=== PATIENT | male | born 1945 | race African-American/Black ===

== ENCOUNTER 2023-10-07 15:49 | Inpatient (IN) | payer MEDICARE, OTHER ==
[~2023-10-07] VITALS: Ht 190.5 cm; Wt 105.7 kg
[2023-10-07 17:12] LABS: HEMATOCRIT. 30.4 % (42.0-52.0); HEMOGLOBIN. 9.7 g/dL (14.0-18.0); MEAN CORPUSCULAR HGB CONC 31.8 g/dL (31.0-37.0); MEAN CORPUSCULAR VOLUME 97.4 fL (80.0-94.0); MEAN PLATELET VOLUME 11.7 fl (7.4-10.4); PLATELET 200 x1000/uL (130-400); RED BLOOD CELL COUNT 3.12 mill/uL (4.7-6.1); RED CELL DISTRIBUTION WIDTH 13.4 % (11.6-14.6); WHITE BLOOD COUNT 12.8 x1000/uL (4.5-11.0)
[2023-10-07 17:14] LABS: POTASSIUM 4.3 mEq/L (3.5-5.1)
[2023-10-07 17:15] LABS: CALCIUM 9.7 mg/dL (8.7-10.4)
[2023-10-07 17:16] LABS: DIFFERENTIAL COMMENT 1
[2023-10-07 17:18] LABS: INR 1.1; PROTHROMBIN TIME 12.5 sec (9.6-11.0)
[2023-10-07 17:20] LABS: CREATININE 2.5 mg/dL (0.6-1.3)
[2023-10-07 17:37] LABS: PLATELET ESTIMATE NORMAL
[2023-10-07 18:47] LABS: CLARITY URINE TURBID (CLEAR); COLOR URINE DARK YELLOW (YELLOW); GLUCOSE URINE NEGATIVE (NEGATIVE); KETONES URINE NEGATIVE (NEGATIVE); LEUKOCYTE ESTERASE URINE 3+ (NEGATIVE); NITRITE URINE NEGATIVE (NEGATIVE); OCCULT BLOOD URINE 2+ (NEGATIVE); PROTEIN URINE 3+ (NEGATIVE); SPECIFIC GRAVITY URINE 1.018 (1.005-1.030)
[2023-10-07 19:03] LABS: WBC URINE TNTC /hpf (0-2)
[2023-10-07 19:04] LABS: BACTERIA URINE 4+; SQUAMOUS EPITHELIAL CELL URINE NONE SEEN /lpf (RARE/1+); YEAST URINE NONE SEEN
[2023-10-07 19:05] LABS: RBC URINE 25-50 /hpf (0-2)
[2023-10-07] MEDS: CEFTRIAXONE 1GM/50ML 50 ML IV ONE (19:38)
[2023-10-07 23:58] VITALS: BP 130/70; PULSE 75; RESP 18; TEMP 36.418
[2023-10-08] VITALS: BP 130/60; PULSE 75; RESP 18; TEMP 36.3918; O2SAT 95
[2023-10-08] MEDS ORDERED: CEFEPIME 1GM IN DEXT 5% 50ML IV SCH
[2023-10-08] MEDS ORDERED: ONDANSETRON HCL 4MG/2ML INJ IV PRN
[2023-10-08] MEDS ORDERED: IPRATROPIUM/ALBUTEROL 0.5-3(2.5)MG/3ML NEB NEB PRN
[2023-10-08] MEDS: SODIUM CHLORIDE 0.9% 1,000 ML IV SCH (01:18)
[2023-10-08] MEDS: CEFEPIME 1GM/50ML 50 ML IV SCH (01:19)
[2023-10-08 04:00] VITALS: BP 104/41; PULSE 91; RESP 17; TEMP 36.33624; O2SAT 99
[2023-10-08] MEDS: ENOXAPARIN 40MG/0.4ML SYR SUBCUT SCH (10:34)
[2023-10-08 11:51] LABS: DIFFERENTIAL COMMENT 1; HEMATOCRIT. 29.8 % (42.0-52.0); HEMOGLOBIN. 9.8 g/dL (14.0-18.0); MEAN CORPUSCULAR HEMOGLOBIN 31.4 pg (28.0-32.0); MEAN CORPUSCULAR HGB CONC 32.9 g/dL (31.0-37.0); MEAN CORPUSCULAR VOLUME 95.4 fL (80.0-94.0); MEAN PLATELET VOLUME 12.1 fl (7.4-10.4); PLATELET 206 x1000/uL (130-400); RED BLOOD CELL COUNT 3.13 mill/uL (4.7-6.1); RED CELL DISTRIBUTION WIDTH 13.1 % (11.6-14.6); WHITE BLOOD COUNT 8.4 x1000/uL (4.5-11.0)
[2023-10-08 11:57] LABS: CHLORIDE 112 mEq/L (98-107); POTASSIUM 4.1 mEq/L (3.5-5.1); SODIUM 138 mEq/L (136-145)
[2023-10-08 11:58] LABS: CALCIUM 9.4 mg/dL (8.7-10.4); CARBON DIOXIDE 18 mEq/L (21-32)
[2023-10-08 12:03] LABS: CREATININE 1.8 mg/dL (0.6-1.3); GLUCOSE 221 mg/dL (70-105); TRIGLYCERIDE 95 mg/dL (0-150); UREA NITROGEN BLOOD 47 mg/dL (9-23)
[2023-10-08 12:04] LABS: CREATINE KINASE MB FRACTION 1.7 ng/mL (0.5-3.6); LDL CHOLESTEROL 48 mg/dL (5-100); TROPONIN I HIGH SENSITIVITY 5 ng/L (3.0-53)
[2023-10-08 12:05] LABS: CHOLESTEROL 95 mg/dL (<200); CREATINE KINASE 131 IU/L (46-171); HDL CHOLESTEROL 27 mg/dL (>55)
[2023-10-08 12:51] LABS: *AMPHETAMINES SCREEN URINE NEGATIVE (NEGATIVE); *BARBITURATES SCREEN URINE NEGATIVE (NEGATIVE); *BENZODIAZEPINES SCREEN URINE NEGATIVE (NEGATIVE); *COCAINE SCREEN URINE NEGATIVE (NEGATIVE); METHADONE URINE SCREEN NEGATIVE (NEGATIVE); OPIATES URINE SCREEN NEGATIVE (NEGATIVE)
[2023-10-08 12:52] LABS: CANNABINOID URINE SCREEN NEGATIVE (NEGATIVE); PHENCYCLIDINE URINE SCREEN NEGATIVE (NEGATIVE)
[2023-10-08] MEDS ORDERED: AMLO10TA80 PO (15:31)
[2023-10-08] MEDS ORDERED: DUTA0.5C37 PO (15:31)
[2023-10-08] MEDS ORDERED: METF-414 PO (15:31)
[2023-10-08] MEDS ORDERED: DEXTROSE 50% WATER 50ML SYRINGE IV PRN (15:45)
[2023-10-08] MEDS: TAMSULOSIN HCL 0.4MG SR CAPSULE PO SCH (15:53)
[2023-10-08] MEDS: AMLODIPINE 10MG TABLET PO SCH (15:53)
[2023-10-08 16:23] LABS: PLATELET ESTIMATE NORMAL
[2023-10-08] MEDS: BLOOD SUGAR DIAGNOSTIC STRIP TEST SCH (17:30)
[2023-10-08] MEDS: INSULIN LISPRO 100 UNITS/ML SUBCUT SCH (17:51)
[2023-10-08] MEDS: HALOPERIDOL LACTATE 5MG/ML VIAL IM NR (22:57)
[2023-10-08] MEDS: ASPIRIN 81MG TABLET PO SCH (22:57)
[2023-10-09] VITALS: BP 160/36; PULSE 68; RESP 18; TEMP 36.33624; O2SAT 100
[2023-10-09 07:21] LABS: CALCIUM 9.2 mg/dL (8.7-10.4)
[2023-10-09 07:27] LABS: CREATININE 1.8 mg/dL (0.6-1.3)
[2023-10-09 07:32] LABS: HEMATOCRIT. 29.2 % (42.0-52.0); HEMOGLOBIN. 9.4 g/dL (14.0-18.0); MEAN CORPUSCULAR HGB CONC 32.3 g/dL (31.0-37.0); MEAN PLATELET VOLUME 11.5 fl (7.4-10.4); PLATELET 198 x1000/uL (130-400); RED BLOOD CELL COUNT 3.04 mill/uL (4.7-6.1); WHITE BLOOD COUNT 5.7 x1000/uL (4.5-11.0)
[2023-10-09 07:37] LABS: DIFFERENTIAL COMMENT 1
[2023-10-09 08:00] VITALS: BP 138/81; PULSE 93; RESP 17; TEMP 36.3918; O2SAT 97
[2023-10-09] MEDS: DUTASTERIDE 0.5MG CAPSULE PO SCH (09:31)
[2023-10-09 12:00] VITALS: BP 123/84; PULSE 82; RESP 19; TEMP 36.44736; O2SAT 98
[2023-10-09 16:00] VITALS: BP 122/78; PULSE 87; RESP 18; TEMP 36.61404; O2SAT 19
[2023-10-09] MEDS ORDERED: LORAZEPAM 2MG/ML INJ IV PRN (18:15)
[2023-10-09 20:00] VITALS: BP 147/65; PULSE 98; RESP 19; TEMP 36.72516; O2SAT 98
[2023-10-09 20:10] LABS: PLATELET ESTIMATE NORMAL
[2023-10-09] MEDS: ATORVASTATIN CALCIUM 10MG TABLET PO SCH (20:20)
[2023-10-10] VITALS: BP 138/72; PULSE 87; RESP 19; TEMP 37.11408; O2SAT 97
[2023-10-10 04:00] VITALS: BP 144/68; PULSE 94; RESP 19; TEMP 37.05852; O2SAT 98
[2023-10-10 07:21] LABS: CARBON DIOXIDE 20 mEq/L (21-32); CHLORIDE 112 mEq/L (98-107); POTASSIUM 4.2 mEq/L (3.5-5.1); SODIUM 141 mEq/L (136-145)
[2023-10-10 07:22] LABS: CALCIUM 9.5 mg/dL (8.7-10.4)
[2023-10-10 07:27] LABS: CREATININE 1.3 mg/dL (0.6-1.3); GLUCOSE 192 mg/dL (70-105); UREA NITROGEN BLOOD 33 mg/dL (9-23)
[2023-10-10 07:47] LABS: BASOPHILS % 0.5 % (0.0-2.0); EOSINOPHILS % 0.3 % (0.0-5.0); HEMATOCRIT. 29.8 % (42.0-52.0); HEMOGLOBIN. 9.6 g/dL (14.0-18.0); LYMPHOCYTES % 16.3 % (20.0-50.0); MEAN CORPUSCULAR HEMOGLOBIN 30.7 pg (28.0-32.0); MEAN CORPUSCULAR HGB CONC 32.1 g/dL (31.0-37.0); MEAN CORPUSCULAR VOLUME 95.6 fL (80.0-94.0); MEAN PLATELET VOLUME 11.1 fl (7.4-10.4); MONOCYTES % 12.7 % (2.0-8.0); NEUTROPHILS % 70.2 % (40.0-76.0); PLATELET 223 x1000/uL (130-400); RED BLOOD CELL COUNT 3.12 mill/uL (4.7-6.1); RED CELL DISTRIBUTION WIDTH 13.1 % (11.6-14.6); WHITE BLOOD COUNT 7.7 x1000/uL (4.5-11.0)
[2023-10-10 08:00] VITALS: BP 153/72; PULSE 99; RESP 20; TEMP 36.50292; O2SAT 96
[2023-10-10 12:00] VITALS: BP 134/71; PULSE 97; RESP 20; TEMP 36.44736; O2SAT 98
[2023-10-10 16:00] VITALS: BP 141/75; PULSE 96; RESP 18; TEMP 36.50292; O2SAT 98
[2023-10-10 20:00] VITALS: BP 145/67; PULSE 68; RESP 19; TEMP 36.6696; O2SAT 98
[2023-10-11] VITALS: BP 149/84; PULSE 89; RESP 17; TEMP 36.44736; O2SAT 100
[2023-10-11 04:00] VITALS: BP 159/73; PULSE 85; RESP 20; TEMP 36.89184; O2SAT 98
[2023-10-11 08:00] VITALS: BP 153/67; PULSE 91; RESP 19; TEMP 36.44736; O2SAT 98
[2023-10-11 12:00] VITALS: BP 145/70; PULSE 90; RESP 19; TEMP 36.33624; O2SAT 99
[2023-10-11 16:00] VITALS: BP 140/66; PULSE 85; RESP 19; TEMP 36.44736; O2SAT 98
[2023-10-11 20:00] VITALS: BP 128/70; PULSE 63; RESP 17; TEMP 37.39188; O2SAT 99
[2023-10-12] VITALS: BP 141/73; PULSE 61; RESP 19; TEMP 37.05852; O2SAT 97
[2023-10-12 04:00] VITALS: BP 152/79; PULSE 90; RESP 17; TEMP 36.3918; O2SAT 96
[2023-10-12 08:00] VITALS: BP 118/69; PULSE 90; RESP 21; TEMP 37.16964; O2SAT 98
[2023-10-12 12:00] VITALS: BP 108/61; PULSE 97; RESP 20; TEMP 36.89184; O2SAT 96
[2023-10-12 20:00] VITALS: BP 115/56; PULSE 107; RESP 18; TEMP 36.89184; O2SAT 97
[2023-10-13] VITALS: BP 138/69; PULSE 101; RESP 18; TEMP 37.11408; O2SAT 99
[2023-10-13 04:00] VITALS: BP 129/71; PULSE 97; RESP 20; TEMP 36.9474; O2SAT 98
[2023-10-13 08:00] VITALS: BP 140/65; PULSE 102; RESP 22; TEMP 37.05852; O2SAT 98
[2023-10-13] MEDS: CEPHALEXIN 250MG CAPSULE PO SCH (11:00)
[2023-10-13 12:00] VITALS: BP 137/66; PULSE 92; RESP 19; TEMP 37.00296; O2SAT 97
[2023-10-13 16:00] VITALS: BP 111/90; PULSE 91; RESP 20; TEMP 35.94732; O2SAT 95
[2023-10-13 20:00] VITALS: BP 112/65; PULSE 91; RESP 20; TEMP 36.61404; O2SAT 99
[2023-10-14] VITALS: BP 121/91; PULSE 89; RESP 20; TEMP 36.50292; O2SAT 100
[2023-10-14 04:00] VITALS: BP 123/63; PULSE 88; RESP 20; TEMP 36.22512; O2SAT 100
[2023-10-14 08:00] VITALS: BP 96/66; PULSE 103; RESP 19; TEMP 37.16964; O2SAT 97
[2023-10-14 12:00] VITALS: BP 107/67; PULSE 92; RESP 20; TEMP 36.72516; O2SAT 100
[2023-10-14 16:00] VITALS: BP 123/65; PULSE 102; RESP 19; TEMP 37.05852; O2SAT 97
[2023-10-14 20:00] VITALS: BP 125/67; PULSE 92; RESP 20; TEMP 36.61404; O2SAT 98
[2023-10-15] VITALS: BP 90/40; PULSE 91; RESP 20; TEMP 36.61404; O2SAT 100
[2023-10-15 04:00] VITALS: BP 146/84; PULSE 88; RESP 20; TEMP 36.72516; O2SAT 95
[2023-10-15 08:00] VITALS: BP 130/76; PULSE 94; RESP 18; TEMP 36.114; O2SAT 98
[2023-10-15 12:00] VITALS: BP 127/75; PULSE 91; RESP 17; TEMP 36.50292; O2SAT 96
[2023-10-15 16:00] VITALS: BP 136/75; PULSE 90; RESP 18; TEMP 36.3918; O2SAT 97
[2023-10-15 20:00] VITALS: BP 135/73; PULSE 102; RESP 18; TEMP 36.3918; O2SAT 95
[2023-10-15] MEDS: ACETAMINOPHEN 325MG TABLET PO PRN (22:37)
[2023-10-16] VITALS: BP 117/64; PULSE 100; RESP 18; TEMP 36.50292; O2SAT 98
[2023-10-16 04:00] VITALS: BP 127/72; PULSE 94; RESP 18; TEMP 36.50292; O2SAT 99
[2023-10-16 08:00] VITALS: BP 132/96; PULSE 101; RESP 19; TEMP 37.16964; O2SAT 96
[2023-10-16 12:00] VITALS: BP 144/86; PULSE 70; RESP 20; TEMP 37.05852; O2SAT 95
[2023-10-16 16:00] VITALS: BP 154/82; PULSE 94; RESP 19; TEMP 36.44736; O2SAT 96
[2023-10-16 20:00] VITALS: BP 118/62; PULSE 92; RESP 18; TEMP 36.50292; O2SAT 99
[2023-10-17 04:00] VITALS: BP 122/62; PULSE 89; RESP 18; TEMP 36.44736; O2SAT 100
[2023-10-17 08:00] VITALS: BP 134/79; PULSE 91; RESP 18; TEMP 36.61404; O2SAT 100
[2023-10-17 12:00] VITALS: BP 131/65; PULSE 103; RESP 20; TEMP 36.33624; O2SAT 100
[2023-10-17 16:00] VITALS: BP 131/67; PULSE 100; RESP 20; TEMP 36.22512; O2SAT 100
[2023-10-17 20:00] VITALS: BP 125/70; PULSE 82; RESP 16; TEMP 36.33624; O2SAT 100
[2023-10-18] VITALS: BP 100/40; PULSE 99; RESP 18; TEMP 35.94732; O2SAT 96
[2023-10-18 04:00] VITALS: BP 153/76; PULSE 97; RESP 20; TEMP 36.28068; O2SAT 99
[2023-10-18 08:00] VITALS: BP 132/60; PULSE 99; RESP 20; TEMP 36.72516; O2SAT 99
[2023-10-18 12:00] VITALS: BP 138/72; PULSE 99; RESP 20; TEMP 36.50292; O2SAT 100
[2023-10-18 16:00] VITALS: BP 127/62; PULSE 95; RESP 20; TEMP 36.33624; O2SAT 100
[2023-10-18 20:00] VITALS: BP 135/75; PULSE 83; RESP 19; TEMP 36.44736; O2SAT 99
[2023-10-19] VITALS: BP 131/66; PULSE 74; RESP 16; TEMP 37.39188; O2SAT 98
[2023-10-19 04:00] VITALS: BP 130/74; PULSE 83; RESP 17; TEMP 37.05852; O2SAT 97
[2023-10-19 08:00] VITALS: BP 144/75; PULSE 70; RESP 19; TEMP 36.72516; O2SAT 93
[2023-10-19 12:00] VITALS: BP 135/72; PULSE 61; RESP 20; TEMP 36.44736; O2SAT 98
[2023-10-19 16:00] VITALS: BP 99/72; PULSE 78; RESP 19; TEMP 37.05852; O2SAT 95
[2023-10-19 20:00] VITALS: BP 134/78; PULSE 94; RESP 18; TEMP 35.8362; O2SAT 95
[2023-10-20] VITALS: BP 128/74; PULSE 94; RESP 18; TEMP 37.00296; O2SAT 99
[2023-10-20 04:00] VITALS: BP 144/81; PULSE 95; RESP 18; TEMP 37.00296; O2SAT 100
[2023-10-20 12:00] VITALS: BP 135/69; PULSE 88; RESP 19; TEMP 36.44736; O2SAT 95
[2023-10-20 16:00] VITALS: BP 121/71; PULSE 92; RESP 19; TEMP 37.05852; O2SAT 94
[2023-10-20 20:00] VITALS: BP 125/71; PULSE 92; RESP 18; TEMP 35.8362; O2SAT 95
[2023-10-21] VITALS: BP 132/71; PULSE 88; RESP 18; TEMP 37.00296; O2SAT 96
[2023-10-21 04:00] VITALS: BP 97/61; PULSE 94; RESP 18; TEMP 36.72516; O2SAT 95
[2023-10-21 08:00] VITALS: BP 115/81; PULSE 92; RESP 18; TEMP 36.72516; O2SAT 100
[2023-10-21 12:00] VITALS: BP 109/58; PULSE 83; RESP 18; TEMP 36.6696; O2SAT 97
[2023-10-21] MEDS: DOCUSATE SODIUM 100MG CAPSULE PO PRN (13:26)
[2023-10-21 16:00] VITALS: BP 121/73; PULSE 91; RESP 18; TEMP 36.55848; O2SAT 98
[2023-10-21 20:00] VITALS: BP 107/65; PULSE 91; RESP 20; TEMP 36.89184; O2SAT 100
[2023-10-22] VITALS (7 sets, daily range): BP systolic 91–144; BP diastolic 57–103; PULSE 73–95; RESP 18–20; TEMP 36.22512–37.16964; O2SAT 97–98
[2023-10-22] MEDS: ENOXAPARIN 30MG/0.3ML SYR SUBCUT SCH (08:39)
[2023-10-22] MEDS ORDERED: NALOXONE HCL 0.4MG/ML VIAL IV PRN (12:00)
[2023-10-23] VITALS: BP 130/98; PULSE 84; RESP 19; TEMP 37.05852; O2SAT 97
[2023-10-23 04:00] VITALS: BP 140/98; PULSE 78; TEMP 37.11408; O2SAT 98
[2023-10-23 08:00] VITALS: BP 96/58; PULSE 82; RESP 17; TEMP 36.114; O2SAT 95
[2023-10-23 12:00] VITALS: BP 100/62; PULSE 96; RESP 18; TEMP 36.3918; O2SAT 99
[2023-10-23 20:00] VITALS: BP 115/64; PULSE 63; RESP 19; TEMP 36.72516; O2SAT 96
[2023-10-24] VITALS: BP 134/80; PULSE 72; RESP 16; TEMP 37.33632; O2SAT 99
[2023-10-24 04:00] VITALS: BP 119/71; PULSE 76; RESP 18; TEMP 37.05852; O2SAT 100
[2023-10-24 08:00] VITALS: BP 137/56; PULSE 91; RESP 20; TEMP 36.16956; O2SAT 94
[2023-10-24 12:00] VITALS: BP 151/82; PULSE 82; RESP 19; TEMP 36.28068; O2SAT 96
[2023-10-24 16:00] VITALS: BP 124/73; PULSE 84; RESP 19; TEMP 36.61404; O2SAT 98
[2023-10-24 20:00] VITALS: BP 126/69; PULSE 81; RESP 20; TEMP 36.33624; O2SAT 98
[2023-10-25] VITALS: BP 109/73; PULSE 89; RESP 18; TEMP 36.16956; O2SAT 100
[2023-10-25 04:00] VITALS: BP 118/69; PULSE 89; RESP 20; TEMP 36.6696; O2SAT 100
[2023-10-25 12:00] VITALS: BP 115/69; PULSE 88; RESP 18; TEMP 36.05844; O2SAT 97
[2023-10-25 16:00] VITALS: BP 110/68; PULSE 83; RESP 19; TEMP 36.50292; O2SAT 97
[2023-10-25 20:00] VITALS: BP 123/71; PULSE 87; RESP 19; TEMP 37.66968; O2SAT 97
[2023-10-26] VITALS: BP 137/80; PULSE 71; RESP 16; TEMP 36.114; O2SAT 100
[2023-10-26 04:00] VITALS: BP 141/72; PULSE 62; RESP 16; TEMP 37.05852; O2SAT 98
[2023-10-26 08:00] VITALS: BP 114/57; PULSE 90; RESP 19; TEMP 36.114; O2SAT 96
[2023-10-26 12:00] VITALS: BP 130/60; PULSE 84; RESP 18; TEMP 36.6696; O2SAT 97
[2023-10-26 16:00] VITALS: BP 118/76; PULSE 85; RESP 18; TEMP 36.05844; O2SAT 97
[2023-10-27] MEDS: HYDROCODONE/ACETAMINOPHEN 5/325MG TABLET PO PRN (03:28)
[2023-10-27 04:00] VITALS: BP 123/87; PULSE 84; RESP 20; TEMP 36.16956; O2SAT 98
[2023-10-27 08:00] VITALS: BP 130/130; PULSE 91; RESP 18; TEMP 35.5584; O2SAT 96
[2023-10-27 12:00] VITALS: BP 111/52; PULSE 88; RESP 17; TEMP 35.5584; O2SAT 97
[2023-10-27 16:00] VITALS: BP 115/60; PULSE 85; RESP 17; TEMP 35.5584; O2SAT 97
[2023-10-27 20:00] VITALS: BP 126/58; PULSE 84; RESP 19; TEMP 36.72516; O2SAT 100
[2023-10-28] VITALS (7 sets, daily range): BP systolic 107–143; BP diastolic 50–88; PULSE 82–94; RESP 18–22; TEMP 36.44736–37.11408; O2SAT 96–99
[2023-10-28] MEDS: IPRATROPIUM/ALBUTEROL 0.5-3(2.5)MG/3ML NEB HHN PRN (11:05)
[2023-10-28 13:19] LABS: CHLORIDE 107 mEq/L (98-107); POTASSIUM 4.2 mEq/L (3.5-5.1); SODIUM 138 mEq/L (136-145)
[2023-10-28 13:20] LABS: CALCIUM 9.7 mg/dL (8.7-10.4); CARBON DIOXIDE 23 mEq/L (21-32)
[2023-10-28 13:25] LABS: CREATININE 1.2 mg/dL (0.6-1.3); GLUCOSE 123 mg/dL (70-105); UREA NITROGEN BLOOD 22 mg/dL (9-23)
[2023-10-28 13:26] LABS: BASOPHILS % 0.5 % (0.0-2.0); HEMATOCRIT. 37.3 % (42.0-52.0); HEMOGLOBIN. 12.1 g/dL (14.0-18.0); LYMPHOCYTES % 34.7 % (20.0-50.0); MEAN CORPUSCULAR HEMOGLOBIN 30.5 pg (28.0-32.0); MEAN CORPUSCULAR HGB CONC 32.5 g/dL (31.0-37.0); MEAN PLATELET VOLUME 10.8 fl (7.4-10.4); MONOCYTES % 12.9 % (2.0-8.0); NEUTROPHILS % 49.9 % (40.0-76.0); PLATELET 171 x1000/uL (130-400); RED BLOOD CELL COUNT 3.96 mill/uL (4.7-6.1); RED CELL DISTRIBUTION WIDTH 13.3 % (11.6-14.6); WHITE BLOOD COUNT 4.3 x1000/uL (4.5-11.0)
[2023-10-28 13:27] LABS: ALANINE AMINOTRANSFERASE 35 IU/L (10-49); ALBUMIN 4.3 g/dL (3.2-4.8); ASPARTATE AMINOTRANSFERASE 34 IU/L (<34); BILIRUBIN TOTAL 0.7 mg/dL (0.1-1.0); PROTEIN TOTAL 7.2 g/dL (6.0-8.3)
[2023-10-28 15:26] LABS: BG CARBOXYHEMOGLOBIN 0.7 % (0.5-1.5); BG DEOXYHEMOGLOBIN 2.2 % (0.0-5.0); BG FRACTION INSPIRED OXYGEN 28; BG HCO3 ACT 22.6 mmol/L (21.0-28.0); BG METHEMOGLOBIN 0.3 % (0.5-1.5); BG OXYGEN SATURATION 97.8 % (94.0-98.0); BG OXYHEMOGLOBIN 96.8 % (94.0-98.0); BG PCO2 30.4 mmHg (35.0-48.0); BG PH 7.489 (7.350-7.450); BG PO2 94.7 mmHg (83.0-108.0); BG SAMPLE SITE LEFT BRACHIAL; BG TOTAL HEMOGLOBIN 12.4 g/dL (13.5-17.5); BG VENT MODE NASAL CANNULA
[2023-10-29] VITALS: BP 118/65; PULSE 81; RESP 19; TEMP 36.78072; O2SAT 97
[2023-10-29 04:00] VITALS: BP 151/69; PULSE 85; RESP 19; TEMP 37.11408; O2SAT 97
[2023-10-29 08:00] VITALS: BP 115/60; PULSE 98; RESP 17; TEMP 35.5584; O2SAT 97
[2023-10-29] MEDS ORDERED: AMIT25TA9 MT (11:10)
[2023-10-29] MEDS ORDERED: SERT-422 PO (11:10)
[2023-10-29] MEDS: SERTRALINE HCL 50MG TABLET PO SCH (11:31)
[2023-10-29 12:00] VITALS: BP 104/63; PULSE 86; RESP 18; TEMP 35.8362; O2SAT 95
[2023-10-29 16:00] VITALS: BP 105/54; PULSE 78; RESP 19; TEMP 35.94732; O2SAT 100
[2023-10-29 20:00] VITALS: BP 108/48; PULSE 81; RESP 19; TEMP 36.61404; O2SAT 95
[2023-10-29] MEDS: AMITRIPTYLINE 25MG TABLET PO SCH (21:00)
[2023-10-30] VITALS: BP 163/68; PULSE 89; RESP 19; TEMP 36.72516; O2SAT 97
[2023-10-30 04:00] VITALS: BP 100/55; PULSE 81; RESP 19; TEMP 36.50292; O2SAT 95
[2023-10-30 08:00] VITALS: BP 121/58; PULSE 86; RESP 18; TEMP 35.72508; O2SAT 100
[2023-10-30 12:00] VITALS: BP 119/70; PULSE 89; RESP 18; TEMP 36.50292; O2SAT 100
[2023-10-30 16:00] VITALS: BP 140/74; PULSE 79; RESP 18; TEMP 35.89176; O2SAT 99
[2023-10-30 20:00] VITALS: BP 136/79; PULSE 85; RESP 17; TEMP 36.3918; O2SAT 99
[2023-10-31] VITALS: BP 117/74; PULSE 71; RESP 18; TEMP 36.83628; O2SAT 100
[2023-10-31 04:00] VITALS: BP 129/70; PULSE 81; RESP 19; TEMP 36.50292; O2SAT 96
[2023-10-31 08:00] VITALS: BP 152/56; PULSE 80; RESP 20; TEMP 36.00288; O2SAT 98
[2023-10-31 12:00] VITALS: BP 143/74; PULSE 75; RESP 19; TEMP 36.00288; O2SAT 98
[2023-10-31 16:00] VITALS: BP 106/51; PULSE 79; RESP 20; TEMP 36.28068; O2SAT 98
[2023-10-31 20:00] VITALS: BP 126/70; PULSE 81; RESP 19; TEMP 36.22512; O2SAT 98
[2023-11-01] VITALS: BP 135/68; PULSE 64; RESP 18; TEMP 36.78072; O2SAT 99
[2023-11-01 04:00] VITALS: BP 114/70; PULSE 86; RESP 20; TEMP 36.61404; O2SAT 100
[2023-11-01 08:00] VITALS: BP 100/53; PULSE 80; RESP 19; TEMP 36.22512; O2SAT 100
[2023-11-01 12:00] VITALS: BP 120/66; PULSE 86; RESP 20; TEMP 36.16956; O2SAT 100
[2023-11-01 16:00] VITALS: BP 116/83; PULSE 77; RESP 19; TEMP 36.28068; O2SAT 97
[2023-11-01 20:00] VITALS: BP 101/69; PULSE 76; RESP 19; TEMP 36.6696; O2SAT 98
[2023-11-02] VITALS (7 sets, daily range): BP systolic 90–150; BP diastolic 54–72; PULSE 68–87; RESP 16–19; TEMP 36.16956–36.78072; O2SAT 95–98
[2023-11-03] VITALS: BP 113/75; PULSE 82; RESP 18; TEMP 36.61404; O2SAT 96
[2023-11-03 04:00] VITALS: BP 151/78; PULSE 90; RESP 18; TEMP 37.39188; O2SAT 95
[2023-11-03 08:00] VITALS: BP 126/64; PULSE 95; RESP 18; TEMP 35.5584; O2SAT 97
[2023-11-03 12:00] VITALS: BP 139/68; PULSE 89; RESP 17; TEMP 35.94732; O2SAT 97
[2023-11-03 16:00] VITALS: BP 135/60; PULSE 80; RESP 18; TEMP 36.05844; O2SAT 96
[2023-11-03 20:00] VITALS: BP 119/75; PULSE 86; RESP 18; TEMP 35.78064; O2SAT 95
[2023-11-04] VITALS: BP 120/70; PULSE 86; RESP 18; TEMP 35.61396; O2SAT 96
[2023-11-04 09:55] VITALS: PULSE 90
== END 2023-11-04 11:00 | DRG 871 ==
LOC: ER 15:49 → 6EST 19:17 → EDBEDREQ 20:08
PROVIDERS: ADMIT Internal Medicine; ATTEND Internal Medicine
DX: A41.9 Sepsis, unspecified organism (principal); G92.8 Other toxic encephalopathy; N17.9 Acute kidney failure, unspecified; E11.9 Type 2 diabetes mellitus without complications; I10 Essential (primary) hypertension; N40.0 Benign prostatic hyperplasia without lower urinary tract symptoms; N30.90 Cystitis, unspecified without hematuria; E78.5 Hyperlipidemia, unspecified; F31.9 Bipolar disorder, unspecified; Z74.01 Bed confinement status; Z86.73 Personal history of transient ischemic attack (TIA), and cerebral infarction without residual deficits; Z90.49 Acquired absence of other specified parts of digestive tract
CPT/HCPCS: 36415; 36600; 70551; 71045; 74176; 80048; 80053; 80061; 80305; 81003; 82375; 82550; 82553; 82805; 82962; 83036; 84484; 85025; 87077; 87186; 94640; 97110; 97162; 97530; 99285; C1893; J0692; J0696; J1630; J1650; J1815; J7030